=== PATIENT | female | born 1945 | race Caucasian/White ===

== ENCOUNTER 2022-04-18 06:28 | Day surgery (SDC) | payer MEDICARE ==
[~2022-04-18 06:28] MED LIST: Lactated Ringers 1,000 ML IV SCH; Lidocaine 1%/Sod Bicarbonate in NS 8.4% 1 ML Syringe IDERM PRN; Sodium Chloride 0.9% 10 ML Syringe FLUSH PRN; Sodium Chloride 0.9% 10 ML Syringe FLUSH SCH
[2022-04-18] MEDS ORDERED: fentaNYL 100 MCG/2 ML SDV ONE (06:42)
[2022-04-18] MEDS ORDERED: Midazolam 1 MG/ML 2 ML SDV ONE (06:42)
[2022-04-18] MEDS ORDERED: Propofol 200 MG/20 ML SDV ONE ×2 (06:42→06:43)
[2022-04-18] MEDS ORDERED: Lidocaine 1% 5 ML VIAL ONE (06:43)
[2022-04-18] MEDS ORDERED: Bupivacaine 0.25%/EPINEPHrine 1:200,000 30 ML SDV ONE (07:10)
[2022-04-18] MEDS ORDERED: Ondansetron 4 MG/2 ML SDV IVPUSH PRN ×2 (07:19→09:17)
[2022-04-18] MEDS ORDERED: fentaNYL 100 MCG/2 ML SDV IVPUSH PRN (07:19)
[2022-04-18] MEDS ORDERED: HYDROmorphone 0.5 MG/0.5 ML Syringe IVPUSH PRN (07:19)
[2022-04-18] MEDS ORDERED: ceFAZolin 2 GM Vial ONE (07:30)
[2022-04-18] MEDS ORDERED: ePHEDrine 50 MG/ML SDV ONE (08:40)
[2022-04-18] MEDS ORDERED: Dexamethasone 4 MG/ML 5 ML MDV ONE (08:40)
[2022-04-18] MEDS ORDERED: Ondansetron 4 MG/2 ML SDV ONE (08:54)
[2022-04-18] MEDS ORDERED: Acetaminophen/oxyCODONE 325-5 MG Tab PO PRN (09:17)
[2022-04-18 13:40] VITALS: BP 126/99; PULSE 70
== END 2022-04-18 13:15 | disposition home or self-care (01) ==
LOC: JD.SDS 06:28
PROVIDERS: ATTEND Obstetrics & Gynecology
DX: D25.9 Leiomyoma of uterus, unspecified (principal); C54.1 Malignant neoplasm of endometrium; C79.61 Secondary malignant neoplasm of right ovary; E03.9 Hypothyroidism, unspecified; E66.9 Obesity, unspecified; R73.02 Impaired glucose tolerance (oral); E78.00 Pure hypercholesterolemia, unspecified; I48.91 Unspecified atrial fibrillation; Z79.899 Other long term (current) drug therapy; Z79.82 Long term (current) use of aspirin; Z98.890 Other specified postprocedural states; Z87.891 Personal history of nicotine dependence; Z68.25 Body mass index [BMI] 25.0-25.9, adult; Z79.84 Long term (current) use of oral hypoglycemic drugs
CPT/HCPCS: 36415; 58262; 82947; 86850; 86900; 86901; 88309; 88341; 88342; A9270; J0690; J1100; J2250; J2405; J2704; J3010; J7120; 00944; 99100; J3490